=== PATIENT | male | born 1925 | race Caucasian/White ===

== ENCOUNTER 2017-05-13 14:34 | Emergency (ER) | payer MEDICARE, BC ==
[2017-05-13] MEDS ORDERED: HYDROCODONE/APAP 5/325MG TABLET PO ONE (15:04)
--- NOTE | 2017-05-13 15:57 | Emergency Department Record ---
History of Present Illness - General Chief complaint: Pain Stated complaint: LT SIDE RIB PAIN Time Seen by Provider: 05/13/17 14:58 Source: Patient Mode of Arrival: Ambulatory Limitations: No limitations - History of Present Illness Initial comments: pt was taking down a flag pole when he lost his balance and fell onto a bench injuring his l ribs yesterday. the pain has increased MD Complaint: Other Onset/Timin -: Days(s) Location: Left, Other History of Same: No Severity scale (1-10): 7 Quality: Sharp Consistency: Constant, Intermittent Improves with: Immobilization Worsens with: Other Associated Symptoms: Denies other symptoms - Related Data Previous Rx's Medication Instructions Recorded Hydrocodone/Acetaminophen [[place] 0.5 tab PO TID PRN #7 tab 05/13/17 5mg/325mg] Allergies Allergy/AdvReac Type Severity Reaction Status Date / Time No Known Drug Allergies Allergy Verified 05/13/17 14:43 Travel Screening - Travel/Exposure Within Last 30 Days Have you traveled within the last 30 days?: No Review of Systems Reviewed: No additional complaints except as noted below Constitutional: Reports: As per HPI. Denies: Chills, Fever, Malaise, Night sweats, Weakness, Weight change Eyes: Reports: As per HPI. Denies: Eye discharge, Eye pain, Photophobia, Vision change ENT: Reports: As per HPI. Denies: Congestion, Dental pain, Ear pain, Epistaxis , Hearing loss, Throat pain Respiratory: Reports: As per HPI. Denies: Cough, Dyspnea, Hemoptysis, Stridor, Wheezes Cardiovascular: Reports: As per HPI. Denies: Arrhythmia, Chest pain, Dyspnea on exertion, Edema, Murmurs, Orthopnea, Palpitations, Paroxysmal nocturnal dyspnea, Rheumatic Fever, Syncope Endocrine: Reports: As per HPI. Denies: Fatigue, Heat or cold intolerance, Polydipsia, Polyuria Gastrointestinal: Reports: As per HPI. Denies: Abdominal pain, Constipation, Diarrhea, Hematemesis, Hematochezia, Melena, Nausea, Vomiting Genitourinary: Reports: As per HPI. Denies: Dysuria, Frequency, Hematuria, Incontinence, Retention, Testicular pain, Testicular mass, Urgency Musculoskeletal: Reports: As per HPI. Denies: Arthralgia, Back pain, Gout, Joint swelling, Myalgia, Neck pain Skin: Reports: As per HPI. Denies: Bruising, Change in color, Change in hair/ nails, Lesions, Pruritus, Rash Neurological: Reports: As per HPI. Denies: Abnormal gait, Confusion, Headache, Numbness, Paresthesias, Seizure, Tingling, Tremors, Vertigo, Weakness Psychiatric: Reports: As per HPI. Denies: Anxiety, Auditory hallucinations, Depression, Homicidal thoughts, Suicidal thoughts, Visual hallucinations Hematological/Lymphatic: Reports: As per HPI. Denies: Anemia, Blood Clots, Easy bleeding, Easy bruising, Swollen glands Past Medical History - SOCIAL HISTORY Smoking Status: Never smoker - RESPIRATORY Hx Respiratory Disorders: No - CARDIOVASCULAR Hx Cardio Disorders: No - NEURO Hx Neuro Disorders: No - GI Hx GI Disorders: No - Hx Genitourinary Disorders: No - ENDOCRINE Hx Endocrine Disorders: No - MUSCULOSKELETAL Hx Musculoskeletal Disorders: No - PSYCH Hx Psych Problems: No - HEMATOLOGY/ONCOLOGY Hx Hematology/Oncology Disorders: No Family Medical History Any Significant Family History?: No Physical Exam - General General Appearance: Alert, Oriented x3, Cooperative, Mild distress - Head Head exam: Normal inspection - Eye Eye exam: Normal appearance, PERRL, EOMI Pupils: Normal accommodation - ENT ENT exam: Normal exam, Mucous membranes moist, Normal external ear exam, Normal orophraynx, TM's normal bilaterally Ear exam: Normal external inspection. negative: External canal tenderness Nasal Exam: Normal inspection. negative: Discharge, Sinus tenderness Mouth exam: Normal external inspection, Tongue normal Teeth exam: Normal inspection. negative: Dental caries Throat exam: Normal inspection. negative: Tonsillar erythema, Tonsillar exudate - Neck Neck exam: Normal inspection, Full ROM. negative: Tenderness - Respiratory Respiratory exam: Normal lung sounds bilaterally, Chest wall tenderness. negative: Respiratory distress - Cardiovascular Cardiovascular Exam: Regular rate, Normal rhythm, Normal heart sounds - GI/Abdominal GI/Abdominal exam: Soft, Normal bowel sounds. negative: Tenderness - Rectal Rectal exam: Deferred - exam: Deferred - Extremities Extremities exam: Normal inspection, Full ROM, Normal capillary refill. negative: Tenderness - Back Back exam: Reports: Normal inspection, Full ROM. Denies: Muscle spasm, Rash noted, Tenderness - Neurological Neurological exam: Alert, CN II-XII intact, Normal gait, Oriented X3 - Psychiatric Psychiatric exam: Normal affect, Normal mood - Skin Skin exam: Dry, Intact, Normal color, Warm Course Vital Signs 05/13/17 05/13/17 14:46 14:52 Temperature 97.4 F L Pulse Rate [ 63 Pulse Ox Probe] Respiratory 18 Rate Blood Pressure 153/95 [Left Arm] Pulse Ox 95 Disposition Disposition: Discharge Clinical Impression: Fracture, rib Qualifiers: Encounter type: initial encounter Rib fracture type: single rib Fracture type: closed Laterality: left Qualified Code(s): S22.32XA - Fracture of one rib, left side, initial encounter for closed fracture Disposition: Home, Self-Care Condition: (1) Good Instructions: Rib Fracture (ED) Additional Instructions: follow up with family doctor. return sooner if worse. deep inspiration 5 times a waking hour. tylenol or motrin as needed for pain when not taking norco Prescriptions: Hydrocodone/Acetaminophen [[place] 5mg/325mg] 0.5 tab PO TID PRN #7 tab PRN Reason: Pain - General Quality - Quality Measures Quality Measures: N/A - Blood Pressure Screening Does Patient Have Any of the Following: No Blood Pressure Classification: Hypertensive Reading Systolic Measurement: 153 Diastolic Measurement: 95 Screening for High Blood Pressure: < First Hypertensive BP, F/U Documented > [ [id number]] First Hypertensive Follow-up Interventions: Follow-up with rescreen GT 1 day and LT 4 weeks.
--- NOTE | 2017-05-15 08:52 | RADIOLOGY REPORT ---
EXAM: LEFT RIBS WITH PA CHEST HISTORY: INJURED TWO DAYS AGO, CAUGHT SELF FROM FALLING WITH LEFT ANTERIOR AND LATERAL RIB PAIN. TECHNIQUE: AP and oblique views of the left ribs and a PA view of the chest were obtained. Comparison: None. Encounter: Initial. FINDINGS: There is a minimally displaced fracture posterolaterally in the left seventh rib. There is questionably a minimally displaced fracture in the left seventh rib posteromedially as well. Diffuse osteopenia consistent with osteoporosis which somewhat limits evaluation, but no definite other left rib fractures are identified. There is some mild streaky atelectasis or infiltrate in the left lung base, however, no definite pleural effusion or pneumothorax evident. Calcification and probably some dilatation of the aortic arch. Mild thoracolumbar curve to the right. IMPRESSION: 1. MINIMALLY DISPLACED FRACTURE POSTEROLATERALLY IN THE LEFT SEVENTH RIB. QUESTIONABLE MINIMALLY DISPLACED FRACTURE POSTEROMEDIALLY IN THE LEFT SEVENTH RIB WELL. 2. MILD STREAKY ATELECTASIS OR INFILTRATE IN THE LEFT BASE. 3. CALCIFICATION AND PROBABLY SOME DILATATION OF THE AORTIC ARCH. IF THERE IS CLINICAL CONCERN FOR THE THORACIC AORTA, CHEST CT WITH CONTRAST WOULD BE SUGGESTED. JOB NUMBER: [id number] [facility]
== END 2017-05-13 16:41 | disposition home or self-care (01) ==
LOC: ER 14:34
DX: S22.32XA Fracture of one rib, left side, initial encounter for closed fracture (principal); W01.198A Fall on same level from slipping, tripping and stumbling with subsequent striking against other object, initial encounter
CPT/HCPCS: 99283